=== PATIENT | female | born 1950 ===

== ENCOUNTER 2024-01-13 10:45 | Inpatient (IN) | payer OTHER ==
[~2024-01-13] VITALS: Ht 165.1 cm; Wt 84.8 kg
[2024-01-13] MEDS ORDERED: DILTIAZEM HCL120 MG (12:54)
[2024-01-13] MEDS ORDERED: PACERONE200 MG PO (12:55)
[2024-01-13] MEDS ORDERED: CARVEDILOL6.25 MG (12:55)
[2024-01-13] MEDS ORDERED: LANOXIN125 MCG PO (12:56)
[2024-01-13] MEDS ORDERED: TRIAMTERENE-HC1 EAC1 PO (12:58)
[2024-01-13] MEDS ORDERED: ISOSORBIDE DINI30 MG PO (12:59)
[2024-01-13] MEDS ORDERED: PREVACID30 MG PO (12:59)
[2024-01-13] MEDS ORDERED: SURFAK240 M1 PO (13:00)
[2024-01-13] MEDS ORDERED: LASIX20 MG PO (13:00)
[2024-01-13] MEDS ORDERED: ZOCOR20 MG PO (13:01)
[2024-01-13] MEDS ORDERED: MIRAPEX0.25 MG PO (13:02)
[2024-01-23] MEDS ORDERED: TRANEXAMIC ACID 100MG/1ML (1000MG) AMPUL IV ONE (06:23)
[2024-01-23] MEDS ORDERED: CEFAZOLIN SODIUM 1,000 MG VIAL ONE ×2 (06:23→11:39)
[2024-01-23] MEDS ORDERED: BUPIVACAINE HCL/PF 0.5% 30ML ML ONE (06:23)
[2024-01-23] MEDS ORDERED: LIDOCAINE HCL 1%/Epi 20ML VIAL IJ ONE ×2 (08:02→16:00)
[2024-01-23] MEDS ORDERED: KETOROLAC TROMETHAMINE 60 MG VIAL IM ONE ×2 (08:02→16:00)
[2024-01-23] MEDS ORDERED: VANCOMYCIN HCL 1,000 MG VIAL ONE (08:03)
[2024-01-23] MEDS ORDERED: METHYLPREDNISOLONE ACETATE 80 MG/ML VIAL ONE (08:03)
[2024-01-23] MEDS ORDERED: POLYMYXIN B SULFATE 500,000 U VIAL ONE (08:05)
[2024-01-23] MEDS ORDERED: POVIDONE-IODINE 3 EA MED..SWAB TOP ONE (08:24)
[2024-01-23] MEDS ORDERED: SODIUM CHLORIDE 0.45 % 1,000 ML IV SCH (09:45)
[2024-01-23] MEDS ORDERED: ONDANSETRON HCL 2 MG/ML VIAL IV PRN (09:45)
[2024-01-23] MEDS ORDERED: MORPHINE SULFATE 2 MG/ML CARTRIDGE IV PRN (09:45)
[2024-01-23] MEDS ORDERED: MORPHINE SULFATE 4 MG/ML CARTRIDGE IV PRN (09:45)
[2024-01-23] MEDS ORDERED: GABAPENTIN400 MG (11:49)
[2024-01-23] MEDS ORDERED: ISOSORBIDE MONO30 M2 (11:49)
[2024-01-23] MEDS ORDERED: CEFAZOLIN SODIUM 1,000 MG VIAL IV SCH (12:00)
[2024-01-23 12:06] LABS: RED BLOOD COUNT 4.54 M/uL (4.00-6.00)
[2024-01-23] MEDS ORDERED: CEFAZOLIN SODIUM 1,000 MG VIAL IV ONE (12:15)
[2024-01-23] MEDS ORDERED: POVIDONE-IODINE 0.75 OZ PACKET TOP ONE (12:30)
[2024-01-23] MEDS ORDERED: VANCOMYCIN HCL 1,000 MG VIAL IR ONE (16:00)
[2024-01-23] MEDS ORDERED: BUPIVACAINE HCL 30 ML VIAL IJ ONE (16:00)
[2024-01-23] MEDS ORDERED: MORPHINE SULFATE 4 MG/ML VIAL IV ONE (16:00)
[2024-01-23] MEDS ORDERED: METHYLPREDNISOLONE ACETATE 80 MG/ML VIAL IJ ONE (16:00)
[2024-01-23] MEDS ORDERED: POLYMYXIN B SULFATE 500,000 U VIAL IR ONE (16:00)
[2024-01-23] MEDS ORDERED: GENTAMICIN SULFATE 40 MG/ML VIAL IV SCH (21:00)
[2024-01-24 07:11] LABS: HEMATOCRIT 42.3 % (36.0-45.00); HEMOGLOBIN 14.2 g/dL (12.0-15.00); MEAN CELL VOLUME 92.2 fL (80.00-100.00); MEAN CORPUSCULAR HEMOGLOBIN 31.1 pg (27.00-32.0); MEAN CORPUSCULAR HGB CONC 33.7 g/dl (32.0-36.0); PLATELET COUNT 166 K/uL (150-450); RED BLOOD COUNT 4.58 M/uL (4.00-6.00); RED CELL DISTRIBUTION WIDTH 14.6 % (11.5-14.5)
[2024-01-24] MEDS ORDERED: OxyCODONE HCL/APAP UD (PERCOCET) PO PRN (08:15)
[2024-01-24] MEDS ORDERED: CARVEDILOL 6.25 MG TABLET PO SCH (09:00)
[2024-01-24] MEDS ORDERED: IRON FUM,PS/FOLIC/BCOMP,C NO.9 1 CAP CAPSULE PO SCH (09:00)
[2024-01-24] MEDS ORDERED: FUROsemide 20 MG TABLET PO SCH (09:00)
[2024-01-24] MEDS ORDERED: LANSOPRAZOLE 30 MG CAPSULE PO SCH (09:00)
[2024-01-24] MEDS ORDERED: DILTIAZEM HCL 120 MG CAP.SR.24H PO SCH (09:00)
[2024-01-24] MEDS ORDERED: AMIODARONE HCL 200 MG TABLET PO SCH (09:00)
[2024-01-24] MEDS ORDERED: SENNA/DOCUSATE SODIUM 1 TAB TABLET PO SCH (09:00)
[2024-01-24] MEDS ORDERED: ISOSORBIDE MONONITRATE 30 MG TABLET PO SCH (09:00)
[2024-01-24] MEDS ORDERED: DIGOXIN 0.125 MG TABLET PO SCH (09:00)
[2024-01-24] MEDS ORDERED: BACITRACIN 28.35 GM OINT.TUBE TOP SCH (09:00)
[2024-01-24] MEDS ORDERED: OxyCODONE HCL ER 10MG TAB (OxyCONTIN) PO SCH (09:00)
[2024-01-24] MEDS ORDERED: RIVAROXABAN 10 MG TAB PO SCH (09:00)
[2024-01-25 06:09] LABS: HEMOGLOBIN 13.7 g/dL (12.0-15.00); MEAN CELL VOLUME 93.2 fL (80.00-100.00); MEAN CORPUSCULAR HEMOGLOBIN 31.1 pg (27.00-32.0); MEAN CORPUSCULAR HGB CONC 33.4 g/dl (32.0-36.0); PLATELET COUNT 155 K/uL (150-450); RED CELL DISTRIBUTION WIDTH 14.4 % (11.5-14.5)
[2024-01-25] MEDS ORDERED: BACTRIM DS TAB1 EACH PO (06:40)
[2024-01-25] MEDS ORDERED: XARELTO10 MG PO (06:40)
[2024-01-25] MEDS ORDERED: OXYC1TAB9 PO (06:40)
[2024-01-25] MEDS ORDERED: INTEGRA PLUS C1 EACH PO (06:40)
== END 2024-01-25 12:54 | DRG 470 ==
LOC: O/R 01-23 05:14 → SURH 01-23 05:14
PROVIDERS: ADMIT Orthopaedic Surgery Sports Medicine; ATTEND Orthopaedic Surgery Sports Medicine
PROC: 0SRC0J9 Replacement of Right Knee Joint with Synthetic Substitute, Cemented, Open Approach (ICD-10-PCS; principal; 2024-01-23 14:00)
DX: M17.11 Unilateral primary osteoarthritis, right knee (principal); D68.62 Lupus anticoagulant syndrome; I11.9 Hypertensive heart disease without heart failure; Z95.0 Presence of cardiac pacemaker